=== PATIENT | female | born 1980 | race Two or more races ===

== ENCOUNTER 2025-05-01 09:06 | Emergency (ER) | payer OTHER ==
[~2025-05-01] VITALS: Ht 165.1 cm; Wt 68.0 kg
[2025-05-01] MEDS ORDERED: KETOROLAC TROMETHAMINE 30 MG VIAL IM ONE (11:30)
[2025-05-01] MEDS ORDERED: DICLOFENAC SODI50 MG PO (14:26)
== END 2025-05-01 14:59 | disposition home or self-care (01) ==
LOC: ER 09:06
DX: G89.11 Acute pain due to trauma (principal); M79.672 Pain in left foot; Z88.2 Allergy status to sulfonamides